=== PATIENT | male | born 1960 | race Caucasian/White ===

== ENCOUNTER → 2016-11-19 | Outpatient (CLI) | payer BC ==
[~2016-11-19] MED LIST: ASP325T PO; LSNP10T PO; LSNP20T PO; METO50TA7 PO; PRAV80TA2 PO; PRV20T PO
--- OUTSIDE RECORDS SUMMARY | 2016-11-19 07:44 | XMS REPORT | Continuity of Care Document ---
Author Author [facility] Organization [facility] Address Unknown Phone Unavailable Care Team Providers Care Residence Life Director Name Role Phone HENOK FOLEY MD PCP Insurance Providers Payer Name Policy Number Subscriber Name Relationship [facility] [id number] Henok Santos 20 Self / Same As Patient Advance Directives Directive Response Recorded Date/Time Advance Directives No 05/23/14 11:01am Health Care Power of Slip Bridge Operator No 05/23/14 11:01am Organ Donor Yes 05/23/14 11:01am Resuscitation Status Full Code 05/23/14 11:01am Problems No known problems or medical conditions. Medications Medication Dose Route Sig Days/Qty Instructions Order Date Discontinued Date Status Pravastatin Sod 40 Mg PO DAILY 12/23/11 05/23/14 Discontinued Metoprolol Succinate 50 Mg PO DAILY 12/23/11 Active Aspirin 325 Mg PO DAILY 12/23/11 Active Lisinopril 10 Mg PO DAILY 12/23/11 05/23/14 Discontinued Pravastatin Sodium 80 Mg PO DAILY 05/23/14 Active Lisinopril 20 Mg PO DAILY 05/23/14 Active Social History Social History Problem Response Recorded Date/Time Smoking Status Never a Smoker 05/23/2014 11:01am Do you dip or chew tobacco? Yes 05/23/2014 11:01am Query Response Start Date Stop Date Smoking Status Never a Smoker Hospital Discharge Instructions No hospital discharge instructions. Plan of Care No plan of care. Functional Status Query Response Date Recorded Patient Orientation Person Place Time Situation Normal For Age May 23, 2014 8:05pm Allergies, Adverse Reactions, Alerts Allergen Type Severity Reaction Status Last Updated Penicillins ([id number]) Allergy Unknown Active 03/30/14 Immunizations Name Given Type pneumococcal polysaccharide PPV23 05/23/14 Administered Vital Signs Acute Vital Signs Vital Response Date/Time Temperature (Fahrenheit) 97.7 degrees F (97.6 - 99.5) Temperature (Calculated Celsius) 36.96061 degrees C (36.4 - 37.5) Temperature Source Tympanic Pulse Rate (adult) 80 bpm (60 - 90) Respiratory Rate 16 bpm (12 - 24) O2 Sat by Pulse Oximetry 100 % (88 - 100) Blood Pressure 113/65 mm Hg Pain Pain Intensity 0 Height (Feet) 5 feet Height (Inches) 8.00 inches Height (Calculated Centimeters) 172.710791 cm Weight (Pounds) 260 pounds Weight (Calculated Grams) 743061.017 gm Weight (Calculated Kilograms) 117.161729 kilograms Calculated BMI 39.53 Results No known relevant diagnostic tests, laboratory data and/or discharge summary. Procedures Procedure Status Date Provider(s) Color Doppler echocardiography completed 05/11/14 CARMEN BLANCO Tracing only of electrocardiogram completed 05/23/14 DAVIN ABDULLAHI MD Encounters Encounter Location Date/Time Registered Clinic [facility] 05/14/14 7:23am Registered Clinic [facility] 05/11/14 7:32am
--- NOTE | 2016-11-22 15:57 | ECHOCARDIOGRAPHY REPORT ---
PROCEDURE PHYSICIAN: DAVIN ABDULLAHI DATE OF PROCEDURE: 11/19/2016 TWO DIMENSIONAL ECHOCARDIOGRAM REPORT PRIMARY PHYSICIAN: OTHER PHYSICIAN: REFERRING PHYSICIAN: Dr. White ORDERING PHYSICIAN: INDICATION FOR THE PROCEDURE: 1. Coronary artery disease. 2. Hypertension. MEASUREMENTS DERIVED VALUES LV DIAMETER (LAX) NORMALS NORMALS Diastolic 4.9 (3.6-5.2) Eject. Fract. 50% (60%+/-6%) Systolic (2.3-3.9) Diastolic Vol. % Shortening (0.22-0.42) Systolic Vol. Aortic Root IVS THICKNESS Diastolic 1.1 (0.6-1.1) LVPW THICKNESS Diastolic 1.1 (0.6-1.1) LA DIAMETER Systolic 4 (2.1-3.7) FINDINGS: 1. Technical quality is good. 2. The left ventricle is normal in size, systolic function appeared to be normal. Estimated ejection fraction 50%. Diastolic dysfunction is suggested by Doppler. 3. The left atrium is in the upper normal limit in size. No clot or thrombus were seen within the left atrium. 4. The right atrium and right ventricle are normal in size. No clot or thrombus were seen within the right side. 5. Mitral valve is normal in morphology with mild mitral regurgitation noted by color Doppler flow. No mitral valve prolapse. No mitral valve stenosis. 6. Aortic valve is trileaflet with normal opening and closing pattern. No significant aortic stenosis or regurgitation was seen. 7. Tricuspid valve is normal in morphology with mild tricuspid regurgitation noted by color Doppler flow. Doppler across tricuspid valve estimated pulmonary artery pressure of 29+ right atrial pressure. 8. Pulmonic valve is functioning normally. 9. No pericardial effusion. IN CONCLUSION: 1. Normal left ventricular size and systolic function. Estimated ejection fraction 50%. Diastolic dysfunction is suggested by Doppler. 2. Left atrium is in the upper normal limit in size. 3. Mild mitral and tricuspid regurgitation. 4. Estimated pulmonary artery pressure of 35 mmHg. Job ID: [id number] Dictated Date: 11/21/2016 09:07:53 Steel Fabricator Date: 11/22/2016 15:53:25 / анна
== END ==
LOC: CARD 07:40
PROVIDERS: ATTEND Physician Assistant
DX: I25.10 Atherosclerotic heart disease of native coronary artery without angina pectoris (principal); I65.23 Occlusion and stenosis of bilateral carotid arteries; I10 Essential (primary) hypertension; E78.2 Mixed hyperlipidemia
CPT/HCPCS: 93306

== ENCOUNTER → 2016-11-23 | Outpatient (CLI) | payer BC ==
[~2016-11-23] MED LIST changes: +CATHETER FLUSH 10 ML SYR IV PRN
--- OUTSIDE RECORDS SUMMARY | 2016-11-23 07:36 | XMS REPORT | Continuity of Care Document ---
Author Author [facility] Organization [facility] Address Unknown Phone Unavailable Care Team Providers Care Development Representative Name Role Phone HENOK FOLEY MD PCP Insurance Providers Payer Name Policy Number Subscriber Name Relationship [facility] [id number] Henok Santos 20 Self / Same As Patient Advance Directives Directive Response Recorded Date/Time Advance Directives No 05/23/14 11:01am Health Care Power of Web Sizer No 05/23/14 11:01am Organ Donor Yes 05/23/14 [...] Type Severity Reaction Status Last Updated Penicillins ([id number]) Allergy Unknown Active 03/30/14 Immunizations Name Given Type pneumococcal polysaccharide PPV23 05/23/14 Administered Vital Signs Acute Vital Signs Vital Response Date/Time Temperature (Fahrenheit) 97.7 degrees F (97.6 - 99.5) Temperature (Calculated Celsius) 36.25968 degrees C (36.4 - 37.5) Temperature Source Tympanic Pulse Rate (adult) 80 bpm (60 - 90) Respiratory Rate 16 bpm (12 - 24) O2 Sat by Pulse Oximetry 100 % (88 - 100) Blood Pressure 113/65 mm Hg Pain Pain Intensity 0 Height (Feet) 5 feet Height (Inches) 8.00 inches Height (Calculated Centimeters) 172.431804 cm Weight (Pounds) 260 pounds Weight (Calculated Grams) 718845.017 gm Weight (Calculated Kilograms) 117.389081 kilograms Calculated BMI 39.53 Results No known relevant diagnostic tests, laboratory data and/or discharge summary. Procedures Procedure Status Date Provider(s) Color Doppler echocardiography completed 05/11/14 CARMEN BLANCO Tracing only of electrocardiogram completed 05/23/14 DAVIN ABDULLAHI MD Encounters Encounter Location Date/Time Registered Clinic [facility] 05/14/14 7:23am Registered Clinic [facility] 05/11/14 7:32am
[2016-11-23 09:12] VITALS: BP 168/96
[2016-11-23 09:17] VITALS: BP 219/85
[2016-11-23 09:19] VITALS: BP 215/73
--- NOTE | 2016-11-24 11:12 | STRESS TEST ---
PROCEDURE PHYSICIAN: DAVIN ABDULLAHI EXERCISE MYOVIEW STRESS TEST REPORT REFERRING PHYSICIAN: Dr. White DATE OF PROCEDURE: 11/23/2015 INDICATION: Coronary artery disease. Baseline heart rate is 69, baseline blood pressure: 145/91. Baseline EKG: Sinus rhythm with no ischemic changes. SUMMARY: The patient was injected with 10.77 mCi of technetium 99 Myoview and the resting images were obtained. Then the patient started exercising with a baseline heart rate, blood pressure and EKG mentioned above. At minute 6 and 25 seconds, the patient was injected with 31.6 mCi of technetium 99 Myoview. The patient was able to exercise for a total 7 minutes 30 seconds on standard Zacarias protocol, achieving maximum heart rate of 149, which is 90% of maximum expected heart rate. With peak exercise level, blood pressure was 219/85. During recovery heart rate and blood pressure returned to baseline. EKG at peak stress level, showed minimal nondiagnostic changes, returned to baseline during recovery. The resting and stress images were reviewed and compared in the short axis, horizontal long axis, and vertical long axis views. Review of the images showed good radiotracer uptake with no significant ischemia or infarction on SPECT images. SSS is 2, SDS 0, TID value 0.89. On the gated images, the left ventricle appeared to be normal size with normal contractility. Calculated ejection fraction 53%. CONCLUSION: 1. Fair exercise tolerance a total 7 minutes 30 seconds on standard Zacarias protocol. Total of 10.1 METs achieving 90% of maximum expected heart rate. 2. Severe hypertensive response to exercise. Returned to baseline during recovery. 3. Minimal nondiagnostic EKG changes with exercise. Returned to baseline during recovery. 4. No significant ischemia or infarction on SPECT images. 5. Normal left ventricular size with normal contractility. Calculated ejection fraction 53%. Job ID: [id number] Dictated Date: 11/24/2016 08:41:22 Patient Access Coordinator Date: 11/24/2016 11:08:26 / kaiden
== END ==
LOC: CARD 07:33
PROVIDERS: ATTEND Physician Assistant
DX: I25.10 Atherosclerotic heart disease of native coronary artery without angina pectoris (principal); I65.23 Occlusion and stenosis of bilateral carotid arteries; I10 Essential (primary) hypertension; E78.2 Mixed hyperlipidemia
CPT/HCPCS: 78452; 93017

== ENCOUNTER → 2018-10-17 | Outpatient (CLI) | payer BC ==
--- NOTE | 2018-10-17 13:06 | STRESS TEST ---
DATE OF SERVICE: 10/17/2018 EXERCISE MYOVIEW STRESS TEST REPORT Baseline heart rate is 60, baseline blood pressure 117/83. Baseline EKG is sinus rhythm with no ischemic changes. SUMMARY: The patient was injected with 10.88 mCi of technetium-99 Myoview and the resting images were obtained. Then, the patient started exercising with a baseline heart rate, blood pressure and EKG mentioned above. The patient was able to exercise for 10 minutes on standard Zacarias protocol. With peak exercise level, the patient was given 31.8 mCi of technetium-99 Myoview. Stress test was showing [address] depression in II, III, aVF, V4 and V5. Blood pressure at peak was 213/76. During recovery, heart rate and blood pressure returned to baseline. EKG returned to baseline. The resting and stress images were reviewed and compared in the short axis, horizontal long axis, and vertical long axis views. Review of the images showed diaphragmatic attenuation with mild decreased uptake at the anteroapical segment with subtle reversibility, no significant ischemia or infarction was seen. SSS is 1, SDS 1, TID value 0.74. On the gated images, the left ventricle appeared to be normal size with normal contractility. Calculated ejection fraction 59%. CONCLUSION: 1. Excellent exercise tolerance, a total of 10 minutes on standard Zacarias protocol, total of 11.7 METS achieving 98% of maximum expected heart rate. 2. Hypertensive response to exercise, peak blood pressure 213/76. 3. Diaphragmatic attenuation with no significant ischemia or infarction on SPECT images. 4. Normal left ventricular size with normal contractility. Calculated ejection fraction 59%. Job ID: [id number] DocumentID: [id number] Dictated Date: 10/17/2018 11:50:26 Broach Operator Date: 10/17/2018 13:06:05 Dictated By: DAVIN ABDULLAHI MD
== END ==
LOC: CARD 07:08
PROVIDERS: ATTEND Physician Assistant
DX: I25.10 Atherosclerotic heart disease of native coronary artery without angina pectoris (principal); I65.29 Occlusion and stenosis of unspecified carotid artery; I10 Essential (primary) hypertension; E78.2 Mixed hyperlipidemia
CPT/HCPCS: 78452; 93017

== ENCOUNTER → 2020-11-25 | Outpatient (CLI) | payer BC ==
[~2020-11-25] VITALS: Ht 172 cm; Wt 118.0 kg
[2020-11-25 08:50] VITALS: BP 126/79
--- NOTE | 2020-11-25 10:39 | Cardiology Stress Test Report ---
Stress Test Report Date of Procedure/Referring: Date of Procedure: Nov 25, 2020 Susanna Bajwa Admitting Physician Davin Cole MD Indications: CAD Baseline Blood Pressure: Blood Pressure Systolic: 126 Blood Pressure Diastolic: 79 Vital Signs Date Time Temp Pulse Resp B/P (MAP) Pulse Ox O2 Delivery O2 Flow Rate FiO2 11/25/20 08:50 83 126/79 (95) 98 Baseline Vital Signs Vital Signs Date Time Temp Pulse Resp B/P (MAP) Pulse Ox O2 Delivery O2 Flow Rate FiO2 11/25/20 08:50 83 126/79 (95) 98 Baseline EKG: Baseline EKG: NSR Summary: After explaining the procedure and details to the patient, he signed the consent and was brought to the stress nuclear laboratory. Patient exercised on standard Zacarias protocol, EKG, heart rate and blood pressure were monitored continuously, resting and stress doses of radio tracer were injected, imaging was acquired and reviewed in the short axis, horizontal long axis and vertical long axis views Patient was able to exercise for a total of 10 minutes on Zacarias protocol, METs 11.4 Maximum heart rate 149 Maximum blood pressure 242/80 Stress EKG, Minimal nondiagnostic changes Recovery EKG, Return to baseline TID: 0.87 SSS: 2 SDS: 0 EF: 54 Conclusion: 1. Excellent exercise tolerance for total of 10 minutes on standard Zacarias protocol, 11.4 METs achieving 91 percent of maximum expected heart rate 2. Hypertensive response to exercise with peak blood pressure 242/80 returned to baseline during recovery 3. Minimal nondiagnostic EKG changes with exercise returned to baseline during recovery 4. Mild decreased uptake involving the mid to apical anterior wall and true apex with mild reversibility 5. Normal left ventricular size, EF 54 percent DAVIN COLE MD Nov 25, 2020 10:39
== END ==
LOC: CARD 08:30
PROVIDERS: ATTEND Physician Assistant
DX: I25.10 Atherosclerotic heart disease of native coronary artery without angina pectoris (principal)
CPT/HCPCS: 78452; 93017; A9502

== ENCOUNTER 2020-12-04 13:00 | Day surgery (SDC) | payer BC ==
[~2020-12-04] VITALS: Ht 117 cm; Wt 172.7 kg
[2020-12-04] VITALS (10 sets, daily range): BP systolic 102–135; BP diastolic 71–85
--- NOTE | 2020-12-04 11:43 | NUR ---
I SPOKE WITH THE PATIENT AND WENT THROUGH THE MEDICATIONS BROUGHT FROM HOME TO COMPLETE THIS MED REC. 10/23/20 ATORVASTATIN 40MG #90/90DS 10/23/20 LISINOPRIL 20MG #90/90DS 10/23/20 METOPROLOL SUCC ER 50MG #/DS OTC: ASPIRIN
[2020-12-04 11:46] LABS: BILIRUBIN,URINE NEGATIVE (NEGATIVE); CLARITY,URINE CLEAR; COLOR,URINE YELLOW; GLUCOSE, URINE (UA) NEGATIVE (NEGATIVE); KETONES,URINE NEGATIVE (NEGATIVE); LEUKOCYTE ESTERASE ,URINE NEGATIVE (NEGATIVE); NITRITE,URINE NEGATIVE (NEGATIVE); PROTEIN,URINE NEGATIVE (NEGATIVE)
[2020-12-04 11:47] LABS: HEMOGLOBIN 15.3 g/dL (13.3-17.7); MEAN PLATELET VOLUME 9.8 fL (9.0-12.2); WHITE BLOOD COUNT 7.6 10^3/uL (4.3-11.0)
[2020-12-04 11:59] LABS: BACTERIA,URINE NEGATIVE /HPF; RBC,URINE RARE /HPF; WBC,URINE RARE /HPF
--- NOTE | 2020-12-04 12:20 | Diagnostic Imaging Report ---
Indication: Coronary artery disease. Findings: Heart size is within the upper limits of normal given technique. No vascular congestion, edema, pneumonia, effusion or pneumothorax. Impression: No acute-appearing abnormality. Dictated by: Dictated on workstation # [id number]
[2020-12-04 12:21] LABS: ALANINE AMINOTRANSFERASE 35 U/L (0-55); ALBUMIN 4.3 GM/DL (3.2-4.5); ALKALINE PHOSPHATASE 89 U/L (40-136); BILIRUBIN,TOTAL 0.5 MG/DL (0.1-1.0); BUN/CREATININE RATIO 18; CALCIUM 9.3 MG/DL (8.5-10.1); CARBON DIOXIDE 25 MMOL/L (21-32); CHLORIDE 105 MMOL/L (98-107); CHOLESTEROL 113 MG/DL (< 200); GFR ESTIMATED > 60; GLUCOSE 93 MG/DL (70-105); HDL CHOLESTEROL 39 MG/DL (40-60); POTASSIUM 4.1 MMOL/L (3.6-5.0); SODIUM 141 MMOL/L (135-145); TOTAL PROTEIN 7.3 GM/DL (6.4-8.2); TRIGLYCERIDES 75 MG/DL (<150); VLDL CHOLESTEROL 15 MG/DL (5-40)
[~2020-12-04 13:00] MED LIST changes: +ASPI-1238 PO; +ATOR40TA70 PO; -CATHETER FLUSH 10 ML SYR IV PRN; +HEParin (CATH LAB) 2,000 ML IV ONE; +LIDOCAINE 1% INJ 20 ML 20 ML VIAL ONE; +LISI-552 PO; +MIDAZOLAM 5 MG/5 ML (VERSED) VIAL ONE; +NS IV 1000 ML 1,000 ML IV SCH; +NS IV 1000 ML 1,000 ML ONE; +fentaNYL INJECTION 100 MCG/2 ML AMP ONE
[2020-12-04] MEDS ORDERED: HEParin 1000 UNIT/ML (10ML VIAL) FOR BOLUS ONE (13:42)
[2020-12-04] MEDS ORDERED: ASPIRIN 325 MG (5 GR) TABLET ONE (14:02)
[2020-12-04] MEDS ORDERED: CLOPIDOGREL 300 MG (PLAVIX) TABLET PO ONE (14:02)
[2020-12-04] MEDS ORDERED: CLOP75TA69 PO (14:04)
--- NOTE | 2020-12-04 14:05 | Discharge Inst-Post CATH ---
Discharge Inst-CATH/EP Problems Reviewed?: Yes Post Cardiac Cath/EP D/C Inst Follow Up/Plan Appointment with Dr Cole's office in 2-4 weeks <b>CARDIAC CATH/EP PROCEDURE DISCHARGE INSTRUCTIONS</b> ACTIVITY * Go Home directly and rest. * Limit activity of the leg (or wrist if it was used) for 7 days including aerobics, swimming, jogging, bicycling, etc. * Restrict stair-climbing for 7 days if possible, if not, climb up with your non-cath leg, then bring together on the same step. * Avoid lifting, pushing, pulling or excessive movement of the affected extremity for 7 days. * Customary sexual activity may be resumed after 2 days-use caution not to use a position that strains or causes pain to the affected extremity. * No driving for 24 hours. * NO SMOKING. * Avoid straining for bowel movements for 7 days. * Gentle walking on level ground is allowed. * Returning to work will depend on the type of procedure and the results. Your doctor will discuss this with you. CALL YOUR DOCTOR FOR ANY OF THE FOLLOWING: *If bleeding from the puncture site occurs- Apply gentle pressure to site with clean cloth and call your doctor or EMS. * If a knot or lump forms under the skin, increases in size, or causes pain. * If bruising appears to be worsening or moving further down your leg instead of disappearing. * Temperature above 101 F. CARE OF YOUR GROIN INCISION; * Bruising or purple discoloration of the skin near the puncture site is common. * You may shower only, no bathtub bathing for 5 days. Be careful to avoid slipping as your leg may feel stiff. * If a closure device was used on your femoral artery, please see the attached guide regarding care of the device and your leg. * Leave dressing on FOR 24 hours. CARE OF YOUR WRIST INCISION; * Bruising or purple discoloration of the skin near the puncture site is common. * You may shower. * DO NOT submerge wrist. * Leave dressing on FOR 24 hours. DAVIN COLE MD Dec 04, 2020 14:05
--- NOTE | 2020-12-04 14:06 | Cardiac Procedure Note-CS/ASA ---
Pre-Procedure Note Pre-Op Procedure Note H&P Reviewed The H&P was reviewed, patient examined and no changes noted. Date H&P Reviewed: Dec 04, 2020 Time H&P Reviewed: 12:00 Conscious Sedation Pre-Proced Time 12:00 ASA Score 3 For ASA 3 and 4: Consider anesthesia and medical clearance. Also, for patients with a history of failed moderate sedation consider anesthesia. Airway Lungs Heart ASA score ASA 1: a normal healthy patient ASA 2: a patient with a mild systemic disease (mid diabetes, controlled hypertension, obesity x ASA 3: a patient with a severe systemic disease that limits activity (angina, COPD, prior Myocardial infarction) ASA 4: a patient with an incapacitating disease that is a constant threat to life (CHF, renal failure) ASA 5: a moribund patient not expected to survive 24 hrs. (ruptured aneurysm) ASA 6: a declared brain- patient whose organs are being harvested. For emergent operations, add the letter E after the classification Mallampati Classification Grade 3 Sedation Plan Analgesia, Amnesia, Plan communicated to team members, Discussed options with patient/fam, Discussed risks with patient/fam The patient is an appropriate candidate to undergo the planned procedure, sedation, and anesthesia. The patient immediately re-assessed prior to indication. DAVIN ABDULLAHI MD Dec 04, 2020 14:06
--- NOTE | 2020-12-04 14:11 | Cardiac Cath Report ---
Cardiac Cath Report Physician (s)/Harvest Crew Supervisor (s) Physician DAVIN ABDULLAHI MD Pre-Procedure Diagnosis Pre-Procedure Diagnosis: coronary artery disease Post-Procedure Note Procedure Start Date: Dec 04, 2020 Name of Procedure: Left heart catheterization PTCA to LAD Findings/Procedure Note PROCEDURE NOTE: 60 years old gentleman with history of coronary artery disease long stent in the LAD, has been having chest pain, have an abnormal stress test with anterior wall ischemia scheduled for cardiac catheterization possible PTCA. After explaining the procedure to the patient, all pros and cons were explained, all questions were answered. The patient signed the consent and then he was placed on the cardiac catheterization laboratory. Groin was prepped SL fashion local anesthesia was used. Sheath placed in the right femoral artery. Karli right and left catheter were used to access the coronary system. Patient was noted to have severe stenosis in the stent in the LAD, Karli right catheter was prolapsed of the left ventricular cavity pressure was measured no left ventriculogram was done and pullback LV to aorta was done. Patient received 5000 units of heparin, FL guide was used advanced to the left main, BMW wire was advanced and parked distally. I used Treck 2.5 x 20 balloon and did multiple inflation within the stent in the LAD that has severe instent restenosis, excellent results. No residual stenosis. At the end of the procedure the sheath was removed. Closure device was deployed FINDINGS: Hemodynamics LV 122/17, end-diastolic pressure of 17 Aorta 109/73 mean of 90 ANATOMY: Left Main is free of obstructive disease Left Anterior Descending is known to have a long stent 2.5 x 38 mm in the mid LAD with severe instent restenosis, balloon angioplasty using Treck 2.5 x 20 mm with multiple inflation up to 2.6 mm with excellent results, no residual stenosis Left Circumflex is moderate in size with no obstructive disease Right Coronory Artery is moderate in size with no obstructive disease LV Gram was not done, pressure was measured CONCLUSION: 1. Severe in-stent restenosis in the mid LAD with successful balloon angioplasty using 2.5 x 20 mm balloon with multiple inflation up to 2.6 mm. No residual stenosis 2. Otherwise mild coronary artery disease nonobstructive disease 3. Mildly elevated left ventricular end-diastolic pressure DISCUSSION AND RECOMMENDATION: Patient was loaded with aspirin and Plavix, continue on aspirin and Plavix and c ontinue to monitor and modify his risk factors Anesthesia Type: Conscious Sedation Estimated blood loss (mL): 15 ml Contrast Amount: 48 ml Total Radiation Dose: 660 mGy Post-Procedure Diagnosis Post-operative diagnosis: Chest pain Coronary artery disease Hypertension Hyperlipidemia DAVIN ABDULLAHI MD Dec 04, 2020 14:11
[2020-12-04] MEDS ORDERED: NS IV 1000 ML 1,000 ML IV SCH (14:15)
[2020-12-04] MEDS ORDERED: PATIENT MAY USE OWN MEDS, ALL PO SCH (14:15)
== END 2020-12-04 20:09 | disposition home or self-care (01) ==
LOC: ICU 14:27 → CATH 20:09
PROVIDERS: ATTEND Internal Medicine Cardiovascular Disease
DX: I25.10 Atherosclerotic heart disease of native coronary artery without angina pectoris (principal); I10 Essential (primary) hypertension; E78.2 Mixed hyperlipidemia; I65.29 Occlusion and stenosis of unspecified carotid artery; Z79.82 Long term (current) use of aspirin; Z79.899 Other long term (current) drug therapy; Z88.0 Allergy status to penicillin
CPT/HCPCS: 71045; 80053; 80061; 81000; 85027; 85610; 85730; 87081; 92920; 93005; 93458; C1725; C1760; C1769; C1887; C1894; 36415

== ENCOUNTER → 2022-10-26 | Outpatient (CLI) | payer BC ==
[~2022-10-26] MED LIST changes: +CLOP-31 PO; -HEParin (CATH LAB) 2,000 ML IV ONE; -LIDOCAINE 1% INJ 20 ML 20 ML VIAL ONE; -LISI-552 PO; +LISI20TA26 PO; -MIDAZOLAM 5 MG/5 ML (VERSED) VIAL ONE; -NS IV 1000 ML 1,000 ML IV SCH; -NS IV 1000 ML 1,000 ML ONE; -fentaNYL INJECTION 100 MCG/2 ML AMP ONE
== END ==
LOC: CARD 10:28
PROVIDERS: ATTEND Physician Assistant
DX: I35.1 Nonrheumatic aortic (valve) insufficiency (principal); I10 Essential (primary) hypertension; I25.10 Atherosclerotic heart disease of native coronary artery without angina pectoris
CPT/HCPCS: 93306

== ENCOUNTER → 2022-11-04 | Outpatient (CLI) | payer BC ==
[~2022-11-04] VITALS: Ht 172 cm; Wt 115.0 kg
[~2022-11-04] MED LIST changes: +CATHETER FLUSH 10 ML SYR IVP PRN
[2022-11-04 09:06] VITALS: BP 113/79
--- NOTE | 2022-11-04 11:39 | Cardiology Stress Test Report ---
Stress Test Report Date of Procedure/Referring: Date of Procedure: Nov 04, 2022 PCP No,Local Physician Admitting Physician Admitting Physician: Attending Physician: Susanna Jovel Indications: CAD Baseline Heart Rate: 66 Baseline Blood Pressure: Blood Pressure Systolic: 113 Blood Pressure Diastolic: 79 Vital Signs Date Time Temp Pulse Resp B/P (MAP) Pulse Ox O2 Delivery O2 Flow Rate FiO2 11/04/22 09:06 66 113/79 (90) Baseline Vital Signs Vital Signs Date Time Temp Pulse Resp B/P (MAP) Pulse Ox O2 Delivery O2 Flow Rate FiO2 11/04/22 09:06 66 113/79 (90) Baseline EKG: Baseline EKG: NSR Summary: After explaining the procedure and details to the patient, he signed the consent and was brought to the stress nuclear laboratory. Patient exercised on standard Zacarias protocol, EKG, heart rate and blood pressure were monitored continuously, resting and stress doses of radio tracer were injected, imaging was acquired and reviewed in the short axis, horizontal long axis and vertical long axis views Patient was able to exercise for a total of 9 minutes on Zacarias protocol, METs 10.5 Maximum heart rate 144 Maximum blood pressure 207/68 Stress EKG, Minimal nondiagnostic changes Recovery EKG, Return to baseline SSS: 3 SDS: 2 EF: 66 Conclusion: 1. Excellent exercise tolerance for a total of 9 minutes on standard Zacarias protocol, 10.5 METS achieving 90% of maximum expected heart rate 2. Appropriate heart rate response to exercise with hypertensive response to exercise return to baseline during recovery 3. Nondiagnostic EKG changes with exercise return to baseline during recovery 4. Diaphragmatic attenuation with fixed defect involving the inferior wall and inferolateral wall. Mild reversible ischemia involving the mid to apical anterior wall 5. Normal left ventricular size, ejection fraction 66% DAVIN ABDULLAHI MD Nov 04, 2022 11:39
== END ==
LOC: CARD 07:20
PROVIDERS: ATTEND Physician Assistant
DX: J98.6 Disorders of diaphragm (principal); I25.89 Other forms of chronic ischemic heart disease; I10 Essential (primary) hypertension
CPT/HCPCS: 78452; 93017; A9502

== ENCOUNTER → 2023-08-05 | Outpatient (CLI) | payer BC ==
[~2023-08-05] MED LIST changes: -CATHETER FLUSH 10 ML SYR IVP PRN
--- NOTE | 2023-08-05 17:05 | Diagnostic Imaging Report ---
EXAMINATION: Chest 2 view. HISTORY: Hypertension and coronary artery disease. COMPARISON: 12/04/2020. FINDINGS: The lungs are clear without edema or pneumonia. No pleural effusion or pneumothorax. Heart size is normal. There is an unchanged calcified granuloma projecting over the left lung base. IMPRESSION: Clear lungs. Dictated by: Dictated on workstation # [id number]
== END ==
LOC: RAD 16:20
PROVIDERS: ATTEND Internal Medicine
DX: J98.4 Other disorders of lung (principal); I25.10 Atherosclerotic heart disease of native coronary artery without angina pectoris; I10 Essential (primary) hypertension; E78.2 Mixed hyperlipidemia
CPT/HCPCS: 71046